=== PATIENT | female | born 1965 | race Caucasian/White ===

== ENCOUNTER → 2016-06-30 | Outpatient (CLI) | payer BC ==
[~2016-06-30] MED LIST: BENADRYL25 MG PO; BENTYL10 MG PO; CELEBREX PO; CYMBALTA PO; FAMOTIDINE PO; FIORICET W/CODE1 CAP PO; FISH OIL 1,2001 CAP PO; FOLIC ACID PO; KEPPRA1000 MG PO; KEPPRA500 MG PO; KEPPRA750 MG PO; LORTAB 7.5-5001 TAB PO; LYRICA PO; LYRICA200 MG PO; MAGNESIUM PO; MOBIC PO; MULTIPLE VITAMI1 T11 PO; NAMENDA10 MG PO; NEXIUM PO; PHENERGAN25 MG PO; PREDNISONE10 MG PO; TOPAMAX25 MG PO; VERAPAMIL HCL120 M1 PO; ZYRTEC PO; ZYRTEC10 M2 PO
== END | disposition home or self-care (01) ==
LOC: CWCC 08:23
DX: Z53.8 Procedure and treatment not carried out for other reasons (principal)

== ENCOUNTER → 2016-08-22 | Outpatient (CLI) | payer BC ==
--- NOTE | ~2016-08-22 | MY11 ---
[facility] A Service of [facility] RADIOLOGY TEXT RESULTS PATIENT: KAVON NEWMAN LOCATION: [facility] : 67 UNIT #: [id number] AGE: [address]: Candelario Murry MD SEX: F ORDER DR: [id number] [facility] [address] [place], [place] [address] [id number] O MR#: [id number] #: [id number] NAME: KAVON NEWMAN : 1965 SEX: F STUDY DATE/TIME: 08/22/2016 10:26 UNIT: [facility] ROOM: STUDY DESCRIPTION: MY Mammogram Screening Dig Izaiah Attending Physician: Candelario Murry M.D. Referring Physician: Candelario Murry M.D. Ordering Physician: Candelario Murry M.D. Primary Care Physician: Candelario Murry M.D. MEDICAL IMAGING REPORT This report is preliminary unless electronic signature is present EXAM Digital screening mammogram, 08/22/2016, [facility]. HISTORY 50-year-old woman no risk elevation. Annual screen. COMPARISON STUDIES Mammograms date to 03/02/2007 with most recent 05/25/2015. TECHNIQUE Digital imaging of each breast was completed utilizing screening protocol. Review includes FDA-approved CAD device. FINDINGS Breast parenchyma is moderately dense with fibroglandular opacities bilaterally. There is some nodularity noted centrally in each breast. I see no suspicious mass characteristics and no suspicious microcalcifications. There is no architectural deformity. IMPRESSION Benign mammogram. Annual screening recommended. Patients over the age of 40 are entered into a reminder system with target due date for the next mammogram. A result letter will also be sent to the patient. BIRADS: 2 Benign finding. Dictated by... Sanchez Staton M.D. [facility] A Service of [facility] RADIOLOGY TEXT RESULTS PATIENT: KAVON NEMWAN LOCATION: [facility] : 67 UNIT #: [id number] AGE: [address]: Candelario Murry MD SEX: F ORDER DR: THIS IS AN ELECTRONICALLY VERIFIED REPORT Sanchez Staton M.D. at 08/22/2016 2:52 PM Ruth TD: 08/22/2016 11:28 JOB #: [id number] MEDICAL IMAGING REPORT Page 1 of 1 COPY
== END | disposition home or self-care (01) ==
LOC: CWCC 09:57
DX: Z12.31 Encounter for screening mammogram for malignant neoplasm of breast (principal)
CPT/HCPCS: G0202